=== PATIENT | male | born 1970 | race Caucasian/White ===

== ENCOUNTER → 2022-04-04 | Outpatient (CLI) | payer MEDICAID, SELFPAY ==
--- NOTE | 2022-04-04 09:56 | VDUE_ITS ---
Reason For Study: AV fistula creation Right Arm Left Arm Right Cephalic Vein at the wrist measures Left Cephalic Vein at the wrist measures 0.31 x 0.31 cm. 0.26 x 0.26 cm. Right Cephalic Vein in the forearm measures Left Cephalic Vein in the forearm measures 0.38 x 0.39 cm. 0.31 x 0.31 cm. Right Cephalic Vein below antecub measures Left Cephalic Vein below antecub measures 0.36 x 0.36 cm. 0.23 x 0.22 cm. Right Cephalic Vein above antecub measures Left Cephalic Vein above antecub measures 0.37 x 0.37 cm. 0.51 x 0.54 cm. Right Cephalic Vein mid bicep measures 0.37 Left Cephalic Vein at mid bicep measures x 0.37 cm. 0.36 x 0.35 cm. Right Cephalic Vein at the shoulder measures Left Cephalic Vein at the shoulder measures 0.42 x 0.40 cm. 0.42 x 0.41 cm. Right Basilic Vein at the origin measures Basilic vein at origin measures 0.56 x 0.58 0.76 x 0.80 cm. cm. Right Basilic Vein mid bicep measures 0.60 x Basilic vein at bicep measures 0.56 x 0.57 0.60 cm. cm. Right Basilic Vein above antecub measures Basilic vein above antecub measures 0.45 x 0.54 x 0.53 cm. 0.43 cm. Right Brachial artery measures 0.52 x 0.55 Left Brachial artery measures 0.54 x 0.55 cm cm with a velocity of 102.1 cm/sec. with a velocity of 100.2 cm/sec. Right Radial artery measures 0.31 x 0.30 cm Left Radial artery measures 0.30 x 0.32 cm with a velocity of 131.2 cm/sec. with a velocity of 123.3 cm/sec. VL/Dialysis Vein Map PRE-OP BILAT Interpretation Summary Patent and compressible bilateral upper extremity cephalic and basilic veins wi th diameters as noted. Normal diameter and flow bilateral radial and brachial arteries Ordering Physician: Stew Moreno Performed By: Lisa Givens RVT ???
== END | disposition home or self-care (01) ==
PROVIDERS: Referring Provider Surgery; Visit Provider Surgery
DX: Z01.818 Encounter for other preprocedural examination (principal)
CPT/HCPCS: 93985

== ENCOUNTER 2022-04-16 06:00 | Day surgery (SDC) | payer MEDICAID, SELFPAY ==
--- NOTE | 2022-04-15 08:47 | EKG12_ITS ---
Test Reason : PRE-OP Blood Pressure : / mmHG Vent. Rate : 076 BPM Atrial Rate : 076 BPM P-R Int : 154 ms QRS Dur : 078 ms QT Int : 364 ms P-R-T Axes : 052 026 075 degrees QTc Int : 409 ms Normal sinus rhythm Low voltage QRS Borderline ECG Confirmed by LITA JOHNSON, REY ([id number]), editor at large LEONARDO MANZO ([id number]) on 04/16/2022 11:06:28 AM Referred By: Stew Moreno Confirmed By:REY LONDON MD
[2022-04-15 09:51] LABS: Hematocrit 28.9 % (40-54); Hemoglobin 9.4 g/dL (13.0-16.5); Mean Corp Hgb Conc 32.5 g/dL (32-36); Mean Corpuscular Hgb 30.7 pg (27.0-32.0); Mean Corpuscular Volume 94.4 fL (80-94); Mean Platelet Vol. 9.3 fl (6.2-12.0); Platelet Count 242 K/mm3 (150-450); RBC Distribution Width CV 14.4 % (11.6-14.6); RBC Distribution Width SD 49.4 fl (35.1-43.9); Red Blood Count 3.06 M/mm3 (4.6-6.2); White Blood Count 6.7 K/mm3 (4.4-11.0)
[2022-04-15 10:21] LABS: Anion Gap 6 (5-15); BUN 68 mg/dL (7-18); BUN/Creat Ratio 18.5 RATIO (10-20); Chloride 105 mmol/L (98-107); Creatinine, Serum 3.67 mg/dL (0.70-1.30); EST Glomerular Filtration Rate 19 mL/min (>60); Est Glom Filt Rate - Afr Amer 23 mL/min (>60); Estimated Creatinine Clearance 25.08 ml/min; Glucose 160 mg/dL (74-106); Sodium Level 137 mmol/L (136-145)
[2022-04-16] VITALS (11 sets, daily range): BP systolic 150–172; BP diastolic 73–86; PULSE 79–99; RESP 16–19; TEMP 36.4–36.9; O2SAT 86–98; BMI 52.5
[2022-04-16] MEDS: Lactated Ringers 1,000 ML 15 ML IV (06:10)
[2022-04-16 06:41] LABS: Bedside Glucose 168 mg/dL (74-106)
--- NOTE | 2022-04-16 07:13 | PCM.HP.BLA ---
History and Physical Date of Admission: 04/16/22 Visit Reasons:?AVF CREATION Chief Complaint: av creation Nurse Sexual Assault Required: No Is patient in pain?: No Allergies No Known Allergies Allergy (Unverified 04/07/22 12:45) Medications atorvastatin 20 mg tablet 20 mg PO DAILY 04/02/20 [History Confirmed 04/02/20] enalapril maleate 20 mg tablet 20 mg PO BID 04/02/20 [History Confirmed 04/02/20] amlodipine 10 mg tablet mg PO 04/07/22 [History Confirmed 04/07/22] aspirin 81 mg tablet,delayed release 81 mg PO DAILY 04/07/22 [History Confirmed 04/07/22] carvedilol 6.25 mg tablet 6.25 mg PO 04/07/22 [History Confirmed 04/07/22] doxazosin 2 mg tablet 2 mg PO 04/07/22 [History Confirmed 04/07/22] furosemide 40 mg tablet 40 mg PO 04/07/22 [History Confirmed 04/07/22] glipizide 5 mg tablet 5 mg PO DAILY 04/07/22 [History Confirmed 04/07/22] hydralazine 100 mg tablet 100 mg PO 04/07/22 [History Confirmed 04/07/22] PFSH Medical History?(Updated 04/07/22 @ 05:[address] Stew Moreno MD) h/o glaucoma surgery HTN (hypertension) Hyperlipidemia Preop testing Type 2 diabetes mellitus Surgical History?(Updated 04/02/20 @ 13:04 by Shantelle Momin) H/O eye surgery Family History?(Updated 04/02/20 @ 13:09 by Shantelle Momin) Father DiabetesGrandmother DiabetesMother CVA (cerebral vascular accident) Social History?(Updated 04/02/20 @ 14:[address] Jayce Shaikh, DO) household members:? spouse and children housing:? house number of children:? 3 current occupational status:? employed pets and animals:? Yes Smoking Status:? Former smoker pack-years: 15 alcohol intake:? current alcohol intake frequency: holidays/special occasions only substance use type:? does not use what type of physical activity do you participate in:? none seatbelt use:? always do you feel safe at home:? Yes HPI HPI HPI: 51-year-old gentleman who is referred by Dr Simi Al for surgical consultation regarding creation of arteriovenous hemodialysis fistula.? A written copy of my surgical consult recommendations will return to him.? The patient has type 2 diabetes and hypertension and diastolic congestive heart failure.? Body weight is 374 pounds with a BMI of 53.7.? By report a kidney biopsy has been declined.? His estimated GFR is 22 mm/min. He is right arm dominant.? He works in a [employer].? He denies heart disease.? He was hospitalized June 2021 with COVID-19.? He states he did not require ventilation.? He denies history of DVT.? His only anticoagulant is low-dose aspirin. April 04, 2022 Reason For Study: AV fistula creation Right Arm? Left Arm Right Cephalic Vein at the wrist measures? Left Cephalic Vein at the wrist measures 0.31 x 0.31 cm.? 0.26 x 0.26 cm. Right Cephalic Vein in the forearm measures? Left Cephalic Vein in the forearm measures 0.38 x 0.39 cm.? 0.31 x 0.31 cm. Right Cephalic Vein below antecub measures ? Left Cephalic Vein below antecub measures 0.36 x 0.36 cm.? 0.23 x 0.22 cm. Right Cephalic Vein above antecub measures ? Left Cephalic Vein above antecub measures 0.37 x 0.37 cm.? 0.51 x 0.54 cm. Right Cephalic Vein mid bicep measures 0.37? Left Cephalic Vein at mid bicep measures x 0.37 cm. ? 0.36 x 0.35 cm. Right Cephalic Vein at the shoulder measures ? Left Cephalic Vein at the shoulder measures 0.42 x 0.40 cm.? 0.42 x 0.41 cm. Right Basilic Vein at the origin measures? Basilic vein at origin measures 0.56 x 0.58 0.76 x 0.80 cm.? cm. Right Basilic Vein mid bicep measures 0.60 x ? Basilic vein at bicep measures 0.56 x 0.57 0.60 cm. ? cm. Right Basilic Vein above antecub measures? Basilic vein above antecub measures 0.45 x 0.54 x 0.53 cm.? 0.43 cm. Right Brachial artery measures 0.52 x 0.55 ? Left Brachial artery measures 0.54 x 0.55 cm cm with a velocity of 102.1 cm/sec.? with a velocity of 100.2 cm/sec. Right Radial artery measures 0.31 x 0.30 cm? Left Radial artery measures 0.30 x 0.32 cm with a velocity of 131.2 cm/sec. ? with a velocity of 123.3 cm/sec. VL/Dialysis Vein Map PRE-OP BILAT Interpretation Summary Patent and compressible bilateral upper extremity cephalic and basilic veins with diameters as noted. Normal diameter and flow bilateral radial and brachial arteries ? ? Ordering Physician: Stew Moreno Performed By: Lisa Givens RVT General General: Yes weight change and fatigue; No appetite, colon cancer, breast cancer or weakness HEENT HEENT: Yes eye injury and eye surgery; No difficulty swallowing, swollen glands or hoarseness Endo Endocrine: Yes diabetes mellitus; No thyroid disease, thyroid cancer, Hair loss, heat intolerance or cold intolerance Skin Skin: No rash or changing moles Breast Breast: No left breast lump, right breast lump, nipple discharge, breast pain, abnormal mammogram, abnormal US or breast enlargement Musc Musculoskeletal: No back problems, arthritis, rheumatoid arthritis, gout or joint pain Cardio Cardiovascular: Yes high blood pressure; No murmur, pacemaker, heart disease, atrial fibrillation, heart attack, heart stent, palpitations, shortness of breat with exertion or chest pain Psych Psychiatric: No depression, anxiety or hearing voices Resp Respiratory: No shortness of breath, Yes sleep apnea, No cough, No COPD, No asthma, No emphysema and No wheezing Gastro Gastrointestinal: No abdominal pain, No nausea or vomiting, No diarrhea, No constipation, No blood in stool, No acid reflux, No hemorrhoids, No ulcers, No gallbladder problem and No black,tarry stools [place] Hematologic: No blood thinners, No blood disorders, No bleeding, Yes anemia and No blood clots Neuro Neurologic: No system reviewed and no additional complaints, except as documented, No as per HPI, No abnormal gait, No abnormal hearing, No abnormal movements, No abnormal speech, No behavioral changes, No burning sensations, No confusion, No convulsions, No disequilibrium, No dizziness, No localized weakness, No frequent falls, No headache(s), No lack of coordination, No loss of vision, No memory loss, No numbness, No other visual disturbances, No radicular pain, No restless legs, No sensory deficit, No syncope, No tingling, No tremor(s), No weakness and No other Exam Const General: cooperative, comfortable and no acute distress [facility] Head: normal to inspection Eyes General: appearance normal, both eyes and all related structures Neck Neck: normal visual inspection Chest Other: Increased chest size. Resp Effort & Inspection: normal respiratory effort Auscultation: clear to auscultation bilaterally Cardio Rate: regular rate Rhythm: regular rhythm GI Other: Very large abdominal pannus, not able detect any internal organs Musc Cervical Spine: normal cervical lordosis Skin General: no rashes or lesions noted Neuro General: patient alert, patient awake and patient oriented x3 Extrem Other: Large bilateral lower extremities, nontender Left upper extremity forearm inspected with ultrasound demonstrating a patent compressible cephalic vein of the forearm.? Unfortunately deeply placed.? 3+ left radial pulse.? Rush test normal Psych Appearance: grossly normal Assessment and Plan Assessment and Plan (1) Chronic kidney disease, stage IV (severe): ?Status:?Chronic (2) Morbid obesity with BMI of 50.0-59.9, adult: ?Status:?Acute Plan I recommend to the patient a transposed left forearm cephalic vein to radial artery arteriovenous hemodialysis fistula creation.? The patient's body habitus leads to a deeply placed cephalic vein.? He appears to have adequate radial artery inflow.? I have discussed with him the technique, benefit, risk, alternatives.? He has had an opportunity to ask and have questions answered.? He will schedule and proceed at his discretion. Copy: Dr Simi Al and Dr. Skyler Moreno M.D., F.A.C.S. I have examined the patient and the H&P has been reviewed. There are no clinical changes since date of exam. Stew Moreno M.D., F.A.C.S.
--- NOTE | 2022-04-16 07:13 | EX.PCM.DISCH ---
Discharge Instructions Procedure Fistula Diet Discharge Diet: Renal Diet Activity Discharge Activity: May Not Drive (for 2-3 days or while taking narcotic pain medications.) Lifting Restrictions: 5 pounds Keep extremity elevated above heart level: - (Keep arm elevated above the heart level for 3 days.) Dressing / Incision Call your doctor if your incision/area has: Continuous Slow Oozing, Sudden Increased Bleeding (apply pressure and call your doctor.), Increased Pain/ Swelling, Increased Redness and Foul Smelling Discharge Call your doctor if you observe: Fever of 101 or Higher Suture Line Care: Avoid Pulling/Pushing and Avoid Pinching/Bending Cleanse incision/area with: Keep Dressing Clean & Dry Additional Dressing/Incision Instructions:: Leave the elastic wrap and gauze dressing on for approximately 3 days. Please keep this clean and dry. When you remove the dressing you may continue to leave the Steri-Strips in place for an additional 1 week. Follow Up Care Please Follow Up With: Stew Moreno MD When: Call [phone] to make an appointment for suture removal and follow up in 1 week. Exercise your left hand with a stress ball several times daily to encourage fistula maturation Discharge Plan Admission Attending Provider: Stew Moreno Primary Care Provider: Skyler Robertson Discharge Orders/Prescriptions Prescriptions: No Action atorvastatin 20 mg tablet 20 mg PO DAILY doxazosin 2 mg tablet 2 mg PO BID Label Comments: TAKE 1 TABLET BY MOUTH TWICE DAILY hydralazine 100 mg tablet 100 mg PO TID carvedilol 6.25 mg tablet 6.25 mg PO BID Label Comments: TAKE 1 TABLET BY MOUTH TWICE DAILY amlodipine 10 mg tablet 10 mg PO DAILY furosemide 40 mg tablet 40 mg PO BID glipizide 5 mg tablet 5 mg PO BID aspirin 81 mg tablet,delayed release (DR/EC) 81 mg PO DAILY Referrals / Follow Up: Skyler Robertson MD [Primary Care Provider] - Disposition Disposition (needs filled in before D/C Order can be placed): Home, Self Care
[2022-04-16] MEDS: Heparin Injection (Vial) 5,000 UNIT/ML VIAL 5000 UNIT (07:50)
[2022-04-16] MEDS: Bupivacaine 0.25% 30 ML Vial (08:00)
[2022-04-16] MEDS: Lidocaine 1% (30 ml sdv) 30 ML Vial (08:00)
[2022-04-16] MEDS: Lidocaine 0.5% (50 ml) 50 ML Vial (08:15)
--- NOTE | 2022-04-16 09:51 | OP.PCM_ITS ---
Report of Operation Date of Procedure: 04/16/22 Pre-Operative Diagnosis: Stage IV chronic kidney disease Post-Operative Diagnosis: Same Surgery/Procedure Performed:: Transposition left forearm cephalic vein to radial artery arteriovenous hemodialysis fistula creation Description of Surgical Findings:: Timeout informed consent was obtained. 51-year-old gentleman was taken to the operating placed on the table underwent initially monitored anesthesia care with local anesthetic. [place] through the procedure he was converted to general anesthesia. 36 cc of 1% lidocaine mixed 50-50 with 0.25% Marcaine and 20 cc of 0.5% lidocaine was used as local anesthetic. Ultrasound mapping was performed at initiation of the procedure. Local was instilled. A longitudinal incision was made up the left radial forearm. Tedious sharp and blunt dissection was dissect free the cephalic vein. Side branches were secured were needed with hemoclips and 3-0 Vicryl ligatures. The vein was dissected free just shy of the antecubital space. Then it was measured to length made a slightly subcutaneous incision in order to get to the radial artery this dissection was tedious due to the patient's body habitus the radial artery was identified dissected free it was elevated for distance. Then from the radial artery to the antecubital space medial to the harvest incision a 6 mm [place] tunneler was inserted the vein was ligated distally with 2 hemoclips then the vein was placed we had been marked and was placed through the tunneler. Appear to have a good positional lie. The patient received 12,000 units of heparin. Peripheral vascular clamps were placed on the radial artery and 11 blade was used to make an arteriotomy which was extended with Hope scissors. A end-to-side venous to arterial anastomosis created with a running 7-0 Prolene. Prior to completion there appeared to be good antegrade retrograde flow. The anastomosis was completed there appeared to be good flow. Doppler was used to assure patency. The patient received 20 mg of protamine as reversal. The wound was closed with deep sutures of interrupted 3-0 Vicryl and then a running subicular 4-0 Monocryl. Steri-Strips Telfa soft roll Venkatesh wrap is applied. Sponge and instrument and needle counts were reported the surgeon to be correct. Blood loss was 200 cc. He tolerated the procedure well was taken to the recovery room in satisfied condition without apparent comp lication. specimens none. Drains none. Blood loss 200 cc. Stew Moreno M.D., F.A.C.S. Surgeon: Stew Moreno Type of Anesthesia: General and Local MAC Anesthesiologist: Cirilo Hunter
[2022-04-16 11:01] LABS: Bedside Glucose 182 mg/dL (74-106)
== END 2022-04-16 13:49 | disposition home or self-care (01) ==
LOC: SDC 06:04 → AC 06:13
PROVIDERS: PCP Family Medicine; Referring Provider Surgery; Visit Provider Surgery
PROC: (CPT 36821; principal; 2022-04-16 07:15)
DX: I13.0 Hypertensive heart and chronic kidney disease with heart failure and stage 1 through stage 4 chronic kidney disease, or unspecified chronic kidney disease (principal); I50.30 Unspecified diastolic (congestive) heart failure; I27.20 Pulmonary hypertension, unspecified; N18.4 Chronic kidney disease, stage 4 (severe); E66.01 Morbid (severe) obesity due to excess calories; Z68.43 Body mass index [BMI] 50.0-59.9, adult; E11.9 Type 2 diabetes mellitus without complications; Z79.84 Long term (current) use of oral hypoglycemic drugs; Z82.3 Family history of stroke; Z87.891 Personal history of nicotine dependence; Z87.448 Personal history of other diseases of urinary system
CPT/HCPCS: 36821; 01844; 36415; 80048; 82962; 85027; 93005; J7040

== ENCOUNTER → 2022-09-14 | Outpatient (CLI) | payer MEDICAID, SELFPAY ==
[2022-09-14 09:49] LABS: Hematocrit 27.7 % (40-54); Hemoglobin 8.7 g/dL (13.0-16.5); Mean Corp Hgb Conc 31.4 g/dL (32-36); Mean Corpuscular Hgb 29.2 pg (27.0-32.0); Mean Platelet Vol. 9.1 fl (6.2-12.0); Platelet Count 217 K/mm3 (150-450); RBC Distribution Width CV 17.2 % (11.6-14.6); RBC Distribution Width SD 58.8 fl (35.1-43.9); Red Blood Count 2.98 M/mm3 (4.6-6.2); White Blood Count 7.2 K/mm3 (4.4-11.0)
[2022-09-14 11:01] LABS: 24 Hour Urine Protein 2971.5 mg/24HR (<150 MG/24HR); 24HR. UA Prot. Total Volume 3500 mL; Creat.Clear Total Volume 3500 mL; Creatinine Clearance 26 ml/min (100-200); Creatinine Serum Creat 3.2 mg/dL (0.8-1.3); Creatinine Urine 34.7 mg/dL (NO RANGE EST.); EST Glomerular Filtration Rate 21 mL/min (>60); Est Glom Filt Rate - Afr Amer 26 mL/min (>60); Urine Protein (24 Hour) 84.9 mg/dL (<11.9)
[2022-09-14 11:16] LABS: Albumin, Serum 3.3 g/dL (3.2-5.0); BUN 75 mg/dL (7-18); BUN/Creat Ratio 23.1 RATIO (10-20); Calcium,Total 10.3 mg/dL (8.5-10.1); Chloride 103 mmol/L (98-107); Creatinine, Serum 3.24 mg/dL (0.70-1.30); EST Glomerular Filtration Rate 21 mL/min (>60); Est Glom Filt Rate - Afr Amer 26 mL/min (>60); Ferritin 126 ng/mL (26-388); Glucose 153 mg/dL (74-106); Iron 29 ug/dL (65-175); Iron Binding Capacity,Total 294 ug/dL (250-450); PERCENT IRON SATURATION 9.9 % (15.0-55.0); Potassium 4.5 mmol/L (3.5-5.1); Sodium Level 137 mmol/L (136-145)
[2022-09-15 08:55] LABS: PTHIN 36.6 pg/mL (18.4-80.1)
== END | disposition home or self-care (01) ==
LOC: LAB 08:58
PROVIDERS: PCP Family Medicine; Visit Provider Internal Medicine Nephrology
DX: N18.4 Chronic kidney disease, stage 4 (severe) (principal); D50.9 Iron deficiency anemia, unspecified
CPT/HCPCS: 36415; 80069; 81050; 82575; 82728; 82746; 83540; 83550; 83970; 84156; 85027

== ENCOUNTER → 2022-12-19 | Outpatient (CLI) | payer MEDICAID, SELFPAY ==
[2022-12-19 16:45] LABS: Hematocrit 26.7 % (40-54); Mean Corp Hgb Conc 33.7 g/dL (32-36); Mean Corpuscular Hgb 32.7 pg (27.0-32.0); Mean Corpuscular Volume 97.1 fL (80-94); Mean Platelet Vol. 9.6 fl (6.2-12.0); Platelet Count 237 K/mm3 (150-450); RBC Distribution Width CV 15.5 % (11.6-14.6); RBC Distribution Width SD 53.7 fl (35.1-43.9); Red Blood Count 2.75 M/mm3 (4.6-6.2); White Blood Count 8.5 K/mm3 (4.4-11.0)
[2022-12-19 17:16] LABS: Albumin, Serum 3.6 g/dL (3.2-5.0); BUN 71 mg/dL (7-18); BUN/Creat Ratio 17.9 RATIO (10-20); Calcium,Total 10.9 mg/dL (8.5-10.1); Chloride 104 mmol/L (98-107); Creatinine, Serum 3.96 mg/dL (0.70-1.30); EST Glomerular Filtration Rate 17 mL/min (>60); Est Glom Filt Rate - Afr Amer 21 mL/min (>60); Glucose 116 mg/dL (74-106); Phosphorus 4.8 mg/dL (2.5-4.9); Potassium 4.6 mmol/L (3.5-5.1); Sodium Level 136 mmol/L (136-145)
[2022-12-19 17:21] LABS: Vitamin D,25 Hydroxy 70.1 ng/mL
== END | disposition home or self-care (01) ==
LOC: LAB 15:49
PROVIDERS: PCP Family Medicine; Referring Provider Internal Medicine Nephrology; Visit Provider Internal Medicine Nephrology
DX: N18.4 Chronic kidney disease, stage 4 (severe) (principal); N25.81 Secondary hyperparathyroidism of renal origin; D50.9 Iron deficiency anemia, unspecified
CPT/HCPCS: 36415; 80069; 82306; 85027

== ENCOUNTER → 2022-12-31 | Outpatient (CLI) | payer SELFPAY ==
[2022-12-31 16:05] LABS: Hematocrit 26.1 % (40-54); Hemoglobin 8.5 g/dL (13.0-16.5); Mean Corp Hgb Conc 32.6 g/dL (32-36); Mean Corpuscular Hgb 32.4 pg (27.0-32.0); Mean Corpuscular Volume 99.6 fL (80-94); Platelet Count 212 K/mm3 (150-450); RBC Distribution Width CV 14.9 % (11.6-14.6); RBC Distribution Width SD 54.8 fl (35.1-43.9); Red Blood Count 2.62 M/mm3 (4.6-6.2); White Blood Count 7.9 K/mm3 (4.4-11.0)
[2022-12-31 17:10] LABS: Albumin, Serum 3.6 g/dL (3.2-5.0); BUN 69 mg/dL (7-18); BUN/Creat Ratio 17.6 RATIO (10-20); Calcium,Total 10.8 mg/dL (8.5-10.1); Chloride 106 mmol/L (98-107); Creatinine, Serum 3.92 mg/dL (0.70-1.30); EST Glomerular Filtration Rate 17 mL/min (>60); Est Glom Filt Rate - Afr Amer 21 mL/min (>60); Ferritin 356 ng/mL (26-388); Glucose 135 mg/dL (74-106); Iron 78 ug/dL (65-175); Iron Binding Capacity,Total 293 ug/dL (250-450); Potassium 4.9 mmol/L (3.5-5.1); Sodium Level 136 mmol/L (136-145)
== END | disposition home or self-care (01) ==
PROVIDERS: Family Medicine Geriatric Medicine; PCP Family Medicine; Visit Provider Internal Medicine Nephrology
DX: N17.9 Acute kidney failure, unspecified (principal); D50.9 Iron deficiency anemia, unspecified
CPT/HCPCS: 36415; 80069; 82728; 83540; 83550; 85027

== ENCOUNTER → 2024-03-08 | Outpatient (CLI) | payer SELFPAY ==
[2024-03-08 13:59] LABS: Hematocrit 26.3 % (40-54); Hemoglobin 8.7 g/dL (13.0-16.5); Mean Corp Hgb Conc 33.1 g/dL (32-36); Mean Corpuscular Hgb 32.3 pg (27.0-32.0); Mean Corpuscular Volume 97.8 fL (80-94); Mean Platelet Vol. 9.4 fl (6.2-12.0); Platelet Count 212 K/mm3 (150-450); RBC Distribution Width CV 12.4 % (11.6-14.6); RBC Distribution Width SD 44.3 fl (35.1-43.9); Red Blood Count 2.69 M/mm3 (4.6-6.2); White Blood Count 8.1 K/mm3 (4.4-11.0)
[2024-03-08 14:21] LABS: Albumin, Serum 3.3 g/dL (3.2-5.0); BUN 65 mg/dL (7-18); BUN/Creat Ratio 16.9 RATIO (10-20); Calcium,Total 10.8 mg/dL (8.5-10.1); Chloride 106 mmol/L (98-107); Creatinine, Serum 3.85 mg/dL (0.70-1.30); EST Glomerular Filtration Rate 17 mL/min (>60); Est Glom Filt Rate - Afr Amer 21 mL/min (>60); Glucose 177 mg/dL (74-106); Iron 69 ug/dL (65-175); Iron Binding Capacity,Total 272 ug/dL (250-450); PERCENT IRON SATURATION 25.4 % (15.0-55.0); Phosphorus 2.9 mg/dL (2.5-4.9); Potassium 5.4 mmol/L (3.5-5.1); Sodium Level 135 mmol/L (136-145)
[2024-03-08 14:24] LABS: Vitamin D,25 Hydroxy 35.1 ng/mL
[2024-03-09 03:44] LABS: Ferritin 184 ng/mL (26-388)
== END | disposition home or self-care (01) ==
LOC: POLAB3 13:39
PROVIDERS: PCP Family Medicine; Visit Provider Internal Medicine Nephrology
DX: N18.4 Chronic kidney disease, stage 4 (severe) (principal); D50.9 Iron deficiency anemia, unspecified; E83.52 Hypercalcemia
CPT/HCPCS: 36415; 80069; 82306; 82728; 83540; 83550; 85027

== ENCOUNTER → 2025-03-23 | Outpatient (CLI) | payer SELFPAY | END | disposition home or self-care (01) | LOC: RAD 11:57 | PROVIDERS: PCP Family Medicine; Referring Provider Internal Medicine Nephrology; Visit Provider Internal Medicine Nephrology | DX: N18.5 Chronic kidney disease, stage 5 (principal) | CPT/HCPCS: 71046 ==